=== PATIENT | male | born 1995 | race Caucasian/White ===

== ENCOUNTER 2021-06-01 13:16 | Emergency (ER) | payer OTHER, SELFPAY ==
[2021-06-01 13:31] VITALS: BP 135/92; PULSE 76; RESP 18; TEMP 36.4; O2SAT 100
--- NOTE | 2021-06-01 13:43 | ED.GENADULT ---
HPI - General Adult General Chief complaint: Unspecified Stated complaint: Depression Time Seen by Provider: 06/01/21 13:43 Source: patient and RN notes reviewed Mode of arrival: ambulatory Limitations: no limitations History of Present Illness HPI narrative: 25-year-old male presents to the [facility] with not feeling well and feeling he might be depressed. Patient states he broke up with a longtime girlfriend in the last 8 months, which he reports has reduced his stress. But he is concerned with decreased appetite, has not been able to sleep for the last week. Denies any thoughts of HI or SI. Patient did state he had an interview on Wednesday which he was eager to do. Patient states he is also concerned because he has lost almost 20 pounds in the last few months. Related Data Home Medications Medication Instructions Recorded Confirmed No Home Medications 06/01/21 06/01/21 Allergies Allergy/AdvReac Type Severity Reaction Status Date / Time ibuprofen Allergy Unknown Other Verified 06/01/21 13:27 Review of Systems Review of Systems: All systems reviewed & are unremarkable except as noted in HPI and below Constitutional: Constitutional: Reports no additional constitutional complaints, Denies chills and Denies fever(s) Eyes: Eyes: Reports no additional eye complaints ENT: Reports system reviewed and no additional complaints, except as documented Cardiovascular: Cardiovascular: Reports no additional cardiovascular complaints and Denies chest pain Respiratory: Respiratory: Reports no additional respiratory complaints and Denies cough Gastrointestinal: Gastrointestinal: Reports no additional gastrointestinal complaints, Denies abdominal pain, Denies nausea, Denies vomiting and Reports other (Decreased appetite) Musculoskeletal: Musculoskeletal: Reports no additional musculoskeletal complaints Integumentary/Breasts: Skin/Breast: Reports system reviewed and no additional complaints, except as docu Neurologic: Reports system reviewed and no additional complaints, except as documented Psychiatric: Psychiatric: Reports as per HPI, Reports depression, Denies homicidal ideation and Denies suicidal ideation Allergic/Immunologic: Allergic/Immunologic: Reports no additional allergic/immunologic complaints PMFSH Past Medical History Medical History (Updated 06/02/21 @ 16:14 by Teagan Brice APRN) Patient denies medical problems Surgical History Surgical History (Updated 06/02/21 @ 16:12 by Teagan Brice APRN) No pertinent past surgical history Social History Social History (System 01/31/19 @ 14:13 by Yris Colbert Smoking status: Smoker, status unknown Alcohol intake: current Comments At the time of my signature, I reviewed and agree with the nursing past medical, surgical, social, and family history. There is no relevant family history pertinent to the patient complaint. Exam Const: General: healthy appearing, no acute distress and alert Nutritional Appearance: well nourished Orientation/consciousness: patient oriented x3 Limitations: no limitations HENMT: Head: normal to inspection Ears: external ears normal Eyes: Pupils: Equal, round and reactive pupils present Neck: Neck: normal visual inspection, no lymphadenopathy and no meningeal signs Chest: Chest palpation & inspection: normal inspection of the chest Resp: Effort & Inspection: normal respiratory effort and no use of accessory muscles Auscultation: clear to auscultation bilaterally, no crackles, no rales, no rhonchi and no wheezes Cardio: Rate: regular rate Rhythm: regular rhythm GI: GI Palp: Yes Soft to palpation and No Tenderness to palpation present (GI) Back/Spine/Pelvis: Back: no CVA tenderness Skin: General skin exam: normal color Rashes: no rashes Wounds: no wounds Neuro: General: patient oriented x3, moves all extremities, no meningeal signs and no focal motor deficits Cranial nerves: Yes Equal, round and re
== END 2021-06-01 13:57 | disposition short-term general hospital (02) ==
PROVIDERS: Emergency Provider Nurse Practitioner
DX: F32.A Depression, unspecified (principal)
CPT/HCPCS: 99212; G0463

== ENCOUNTER 2022-03-18 14:28 | Emergency (ER) | payer BC, OTHER, SELFPAY ==
--- NOTE | 2022-03-18 14:31 | ED.URI ---
HPI - URI/Sore Throat General Chief Complaint: Upper Respiratory Infection Stated Complaint: cold sx Time Seen by Provider: 03/18/22 14:30 Source: patient Mode of arrival: ambulatory Limitations: no limitations History of Present Illness HPI Narrative: Mr. De La Fuente is a 26-year-old male patient presenting to clinic today with complaints of cold symptoms x2 days.. He reports He has had body aches, chills, sore throat, cough, and head congestion. No known exposure to anybody with COVID, flu, or strep. MD elicited complaint: sore throat and nasal congestion Related Data Home Medications Medication Instructions Recorded Confirmed No Home Medications 06/01/21 06/01/21 Allergies Allergy/AdvReac Type Severity Reaction Status Date / Time ibuprofen Allergy Unknown Other Verified 03/18/22 14:37 Review of Systems Review of Systems: Pertinent positives per HPI. Patient denies any fever, rash, visual changes, dizziness, shortness of breath, chest pain, palpitations, nausea, vomiting, diarrhea, constipation, abdominal pain, or any urinary issues. PMFSH Past Medical History Medical History Patient denies medical problems Surgical History Surgical History No pertinent past surgical history Social History Social History Smoking status: Smoker, status unknown Alcohol intake: current Comments At the time of my signature, I reviewed and agree with the nursing past medical, surgical, social, and family history. There is no relevant family history pertinent to the patient complaint. Exam Narrative: General: Well-developed, well nourished, in no apparent distress Head: Normocephalic, atraumatic Eyes: Pupils equally round and reactive to light bilaterally, EOM intact, sclera and conjunctive clear, no discharge, lids normal Ears: TMs intact and dull, ear canals clear, no drainage, grossly hearing normal. Nose: Nares patent, clear nasal discharge, no inflammation, no sinus tenderness. Mouth: Oral pharynx without lesions or masses, good dentition, MMM. oropharynx red Neck: Supple, trachea midline, no enlargement of anterior or posterior cervical nodes, no thyroid masses or goiter palpable. Cardio: Regular rate and rhythm, s1 and s2 normal, no murmur appreciated. Resp: Clear to auscultation bilaterally, no rhonchi, rales, wheezing or rubs Course Course Emergency Course: Portions of this record may have been created with voice recognition software. Level of Care: Express Care Visit Vital Signs Vital signs: Vital Signs Temperature 37.3 C 03/18/22 14:38 Pulse Rate 92 03/18/22 14:38 Respiratory Rate 18 03/18/22 14:38 Blood Pressure 134/88 03/18/22 14:38 Pulse Oximetry 100 03/18/22 14:38 Oxygen Delivery Room Air 03/18/22 14:38 Temperature 37.3 C 03/18/22 14:38 Pulse Rate 92 03/18/22 14:38 Respiratory Rate 18 03/18/22 14:38 Blood Pressure 134/88 03/18/22 14:38 Pulse Oximetry 100 03/18/22 14:38 Oxygen Delivery Room Air 03/18/22 14:38 Vital signs reviewed MDM - URI/Sore Throat MDM Narrative Medical decision making narrative: At the time of visit patient is resting comfortably on the exam table. COVID testing and influenza testing was completed. COVID test was negative influenza was positive for influenza A. Supportive measures were discussed with the patient he voiced understanding of discharge instructions and agrees to treatment plan. Strep culture was sent to the lab. Differential Diagnosis Differential diagnosis: Likely upper respiratory infection, otitis media, sinusitis, viral infection, bronchitis, influenza, pharyngitis and other ( COVID) Lab Data Labs: Influenza A Screen Positive Reference Range: Negative Inf
[2022-03-18 14:38] VITALS: BP 134/88; PULSE 92; RESP 18; TEMP 37.3; O2SAT 100
== END 2022-03-18 15:28 | disposition home or self-care (01) ==
PROVIDERS: Emergency Provider Nurse Practitioner Family
DX: J10.1 Influenza due to other identified influenza virus with other respiratory manifestations (principal); Z20.822 Contact with and (suspected) exposure to COVID-19
CPT/HCPCS: 87070; 87426; 87804; 99213; C9803; G0463

== ENCOUNTER 2023-05-26 10:11 | Emergency (ER) | payer SELFPAY ==
--- NOTE | ~2023-05-26 | CT_ITS ---
EXAMINATION: CT abdomen pelvis w con DATE: 05/26/2023 11:34 INDICATION: Generalized abdominal pain, worst in the right lower quadrant. TECHNIQUE: Computed tomography (CT) of the abdomen and pelvis was performed with 100 mL Omnipaque 350 intravenous contrast. Automated exposure control and iterative reconstruction technique were employe d. The dose-length product was 226.81 mGy-cm. COMPARISON: None. FINDINGS: The visualized portions of the lung bases are clear without pneumonia or pleural effusion. The heart size is normal. No pericardial effusion. The liver, gallbladder, spleen, pancreas, adrenal glands, and kidneys are normal. There are no dilated loops of bowel. The appendix is normal. There ar e no pathologically enlarged lymph nodes. There is no free intraperitoneal fluid. The bones are unrem arkable. IMPRESSION: 1. No etiology for the patient's symptoms. Reviewed, dictated and finalized at location A. [facility]
[2023-05-26 10:15] VITALS: BP 136/92; PULSE 84; RESP 18; TEMP 36.3; O2SAT 100
--- NOTE | 2023-05-26 10:25 | ED.ABDPAIN ---
HPI - Abdominal Pain General Chief Complaint: Abdominal Pain Stated Complaint: rlq pain Time Seen by Provider: 05/26/23 10:13 History of Present Illness HPI narrative: 27-year-old male with reported history of diverticulitis reports for evaluation for abdominal pain x1 week. Patient states his pain is in his right lower quadrant, right upper quadrant, and left flank. When asked where the worst pain is, he points to his right lower quadrant. He reports mild constipation. His last bowel movement was today but small in caliber. Reports nausea, denies vomiting or diarrhea. Denies dysuria, hematuria, fever, prior abdominal surgeries. States abdominal pain gets worse with movement, denies other aggravating or alleviating factors. Related Data Allergies Allergy/AdvReac Type Severity Reaction Status Date / Time ibuprofen Allergy Unknown Other Verified 05/26/23 10:23 Review of Systems Review of Systems: CONSTITUTIONAL: Denies fever, chills, or sweats. EYES: Denies visual changes, redness, or discharge. ENT: Denies rhinorrhea, congestion, sore throat, or otalgia. CARDIOVASCULAR: Denies chest pain, palpitations, or edema. RESPIRATORY: Denies cough or dyspnea. GASTROINTESTINAL: See HPI GENITOURINARY: Denies dysuria or hematuria. SKIN: Denies rash or itching. MUSCULOSKELETAL: Denies back pain, joint pain, or myalgia. NEUROLOGIC: Denies headache, numbness, or weakness. PSYCHIATRIC: Denies anxiety or depression. PMFSH Past Medical History Medical History Patient denies medical problems Surgical History Surgical History No pertinent past surgical history Social History Social History Smoking status: Smoker, status unknown Alcohol intake: current Exam Narrative: GENERAL: Well-appearing, well-nourished, and in no acute distress. HEAD: Normocephalic, atraumatic. EYES: PERRLA and EOMI. ENT: Nares clear, no rhinorrhea or epistaxis. Mucous membranes moist. NECK: Supple. CHEST: Clear to auscultation. No respiratory distress. HEART: Regular rate and rhythm. No murmur heard. Normal peripheral pulses. ABDOMEN: Quiet bowel sounds. Abdomen soft with tenderness in the right lower quadrant, right upper quadrant. No CVA tenderness. No guarding, rebound or rigidity. EXTREMITIES: Normal range of motion. No edema. SKIN: Warm, dry, no rash. NEURO: No focal deficits. Alert and oriented x3 Course Vital Signs Vital signs: Vital Signs Temperature 97.4 F L 05/26/23 10:15 Pulse Rate 84 05/26/23 10:15 Respiratory Rate 18 05/26/23 10:15 Blood Pressure 136/92 H 05/26/23 10:15 Pulse Oximetry 100 05/26/23 10:15 Oxygen Delivery Room Air 05/26/23 10:15 Temperature 97.4 F L 05/26/23 10:15 Pulse Rate 84 05/26/23 10:15 Respiratory Rate 18 05/26/23 10:15 Blood Pressure 136/92 H 05/26/23 10:15 Pulse Oximetry 100 05/26/23 10:15 Oxygen Delivery Room Air 05/26/23 10:15 MDM - Abdominal Pain MDM Narrative Medical decision making narrative: 27-year-old male with a reported history of diverticulitis reports for evaluation for abdominal pain x1 week. See HPI for further history. Vitals stable. He is afebrile. Exam significant for the above. CBC without leukocytosis. Chemistries are largely unremarkable, LFTs are normal. UA without infection. Lactic acid normal. Lipase normal. CT abdomen pelvis shows no acute abnormality. Labs and imaging discussed with the patient. He is concerned he is constipated, will prescribe docusate have a follow-up with PCP. Referral provided. Strict ED return precautions discussed. He is agreeable to plan verbalized understanding. Discharged in stable condition. Lab Data 05/26/23 10:24 05/26/23 10:24 Labs: Lab Results 05/26/23 05/26/23 Range/Units 10:2
[2023-05-26] MEDS: SODIUM CHLORIDE 0.9% IV 1,000 ML 999 ML IV CONT (10:31)
[2023-05-26] MEDS: ONDANSETRON INJ 4 MG/2 ML VIAL IV PUSH (10:31)
[2023-05-26 10:44] LABS: Appearance Urine Clear (Clear); Basophils Absolute Auto 0.1 K/mm3 (0.0-0.1); Basophils Percent Auto 0.8 % (0.2-1.2); Bilirubin Urine Negative (Negative); Blood Urine Negative (Negative); Color Urine Yellow (Yellow); Eosinophils Absolute Auto 0.1 K/mm3 (0-0.3); Glucose Urine UA Negative (Negative); Hematocrit 43.3 % (42.0-52.0); Hemoglobin 14.3 g/dL (14.0-18.0); Immature Granulocyte Absolute 0.01 K/mm3 (0.00-0.031); Immature Granulocyte Percent A 0.2 % (0-0.5); Ketones Urine Trace mg/dL (Negative); Leukocyte Esterase Ur Negative LEU/UL (Negative); Lymphocytes Absolute Auto 1.68 K/mm3 (0.9-3.2); Lymphocytes Percent Auto 27.5 % (18.3-44.2); Mean Corpuscular Hemoglobin 28.8 pg (26-34); Mean Corpuscular Volume 87.1 fl (80-100); Mean Platelet Volume 9.2 fl (7.4-10.4); Monocytes Absolute Auto 0.5 K/mm3 (0.1-0.6); Neutrophils Absolute Auto 3.8 K/mm3 (1.3-6.7); Neutrophils Percent Auto 62.5 % (45.5-73.1); Nitrate Urine Negative (Negative); Platelet Count Result 302 k/mm3 (150-375); Protein Urine Negative (Negative); Red Blood Count 4.97 M/mm3 (4.6-6.20); Red Cell Distribution Width 12.8 % (11.5-14.5); Specific Grav Ur 1.015 (1.001-1.035); Urobilinogen Urine 0.2 mg/dL (<2.0); White Blood Count 6.1 K/mm3 (4.5-10.0)
[2023-05-26 10:55] LABS: Add Urine Microscopic? NO
[2023-05-26 10:56] LABS: Alanine Aminotransferase 21 U/L (6-50); Albumin Level 5.1 g/dL (3.5-5.1); Alkaline Phosphatase 49 U/L (38-126); Anion Gap 4 mmol/L (8-16); Aspartate Amino Transferase 32 U/L (17-59); Bilirubin,Total 0.9 mg/dL (0.2-1.3); Blood Urea Nitrogen 15 mg/dL (9-20); Carbon Dioxide 34 mmol/L (22-30); Chloride 102 mmol/L (98-107); Estimated CRCL calculation 107 ml/min; Estimated Glomerular Filt Rate > 60; Glucose 94 mg/dL (65-110); Lipase 36 U/L (23-300); Potassium 3.4 mmol/L (3.4-5.0); Sodium 140 mmol/L (137-145)
[2023-05-26 10:57] LABS: Lactic Acid Reflex 0.6 mmol/L (0.7-2.0)
[2023-05-26 12:20] VITALS: BP 123/87; PULSE 64; RESP 18; O2SAT 99
== END 2023-05-26 12:22 | disposition home or self-care (01) ==
PROVIDERS: Emergency Provider Physician Assistant
DX: R10.84 Generalized abdominal pain (principal)
CPT/HCPCS: 36415; 74177; 80053; 81003; 83605; 83690; 85025; 96361; 96374; 99284; J2405; J7030; Q9967

== ENCOUNTER 2024-01-31 13:56 | Outpatient (CLI) | payer BC, SELFPAY ==
[2024-01-31 14:32] LABS: CRP < 0.5 mg/dL (<1.0)
[2024-02-03 15:52] LABS: Immunoglobulin A 129 mg/dL (47-310); TTG IGA AB <1.0 U/mL
[2024-02-03 21:28] LABS: Beef IgE (F27) <0.10 kU/L; Lamb (F88) IgE <0.10 kU/L; Lamb Class 0; Pork (F26) IgE <0.10 kU/L; Pork Class 0
== END 2024-01-31 13:57 | disposition home or self-care (01) ==
LOC: ANHLAB 13:58
PROVIDERS: Visit Provider Nurse Practitioner Family
DX: R11.0 Nausea (principal); R10.9 Unspecified abdominal pain; R19.4 Change in bowel habit; R63.4 Abnormal weight loss
CPT/HCPCS: 36415; 82784; 86008; 86140; 86364

== ENCOUNTER 2024-03-14 00:13 | Day surgery (SDC) | payer BC, SELFPAY ==
[2024-03-02 13:25] VITALS: BMI 20.3
[2024-03-14 06:22] VITALS: BP 120/75; PULSE 50; RESP 19; TEMP 36.1; O2SAT 100
[2024-03-14] MEDS: LACTATED RINGERS 1,000 ML 150 ML IV CONT (06:33)
--- NOTE | 2024-03-14 07:04 | WPDANESEPPF ---
Anes - Initial Pre Proc Eval Procedure: Operation Date: 03/14/24 07:30 Proposed Procedures p Esophagogastroduodenoscopy & Colonoscopy - Rodger Parikh MD Date/Time: 03/14/24 07:04 Surgeon: Rodger Parikh MD Pre Op Diagnosis: Nausea/abnormal wt loss Patient Data Age: 28 Gender: M Height: 1.83 m Weight: 66 kg Last Vital Signs Temp 36.1 C L 03/14/24 06:22 Pulse 50 L 03/14/24 06:22 Resp 19 03/14/24 06:22 BP 120/75 03/14/24 06:22 Pulse Ox 100 03/14/24 06:22 O2 Del Method Room Air 03/14/24 06:22 Allergies Allergy/AdvReac Type Severity Reaction Status Date / Time ibuprofen Allergy Unknown Other Verified 03/14/24 06:20 Home Medications ?Medication ?Instructions ?Recorded ?Confirmed ?Type omeprazole 40 mg capsule,delayed 40 mg PO DAILY 01/27/24 03/14/24 History release dicyclomine 10 mg capsule 10 mg PO TID PRN Diarrhea 03/02/24 03/02/24 History Patient hx anesthesia problems: none Family hx anesthesia problems: none Results Review: All pre-operative results and documents have been reviewed as part of the pre-operative evaluation. [facility] Past Medical History Medical History (Updated 03/14/24 @ 07:04 by Yunier Briceño MD) Depression Surgical History Surgical History No pertinent past surgical history Social History Social History Smoking status: Current every day smoker Tobacco type: e-cigarettes/vaping Alcohol intake: current Substance use: current Substance use type: marijuana Other substance usage details: daily Living arrangements: with family Spiritual care concerns: No Anes - Eval Final PreProcedure Day of Procedure 03/14/24 07:04 Patient weight: normal Heart: regular rate and rhythm Lungs: clear to auscultation Airway: Mallampati scale class II Neurological: alert and oriented Last oral intake: >/= 8 hours ASA classification: II Emergent: no Anesthetic plan: proceed Anesthesia type and monitoring: general GIVS and standard monitoring Results Review: All pre-operative results and documents have been reviewed as part of the pre-operative evaluation. Informed Consent: The patient's anesthetic plan and its attendant risks and benefits were discussed with the patient/family/POA. Questions were solicited and answers provided to the satisfaction of the patient/family/POA.
[2024-03-14] MEDS: BENZOCAINE (*SP) 60 ML SPRAY CAN (HURRICAINE) 1 SPRAY MUCOUS MEM (07:39)
--- NOTE | 2024-03-14 07:41 | P.HP_ITS ---
H&P: HPI History of Present Illness Date/Time: 03/14/24 07:41 Chief Complaint: Generalized abdominal pain -weight loss. Narrative: The patient has a complex history of left upper quadrant pain, unintentional w eight loss and a recent past history of alcohol drinking. He has lost over 50 lb. He has been seen in our office and is referred now for EGD and colonoscopy. Review of Systems Review of Systems: All systems reviewed & are unremarkable except as noted in HPI and below PMFSH Past Medical History Medical History (Updated 03/14/24 @ 07:04 by Yunier Briceño MD) Depression Surgical History Surgical History No pertinent past surgical history Social History Social History Smoking status: Current every day smoker Tobacco type: e-cigarettes/vaping Alcohol intake: current Substance use: current Substance use type: marijuana Other substance usage details: daily Living arrangements: with family Spiritual care concerns: No Meds Home Medications and Allergies Home Medications ?Medication ?Instructions ?Recorded ?Confirmed ?Type omeprazole 40 mg capsule,delayed 40 mg PO DAILY 01/27/24 03/14/24 History release dicyclomine 10 mg capsule 10 mg PO TID PRN Diarrhea 03/02/24 03/02/24 History Allergies Allergy/AdvReac Type Severity Reaction Status Date / Time ibuprofen Allergy Unknown Other Verified 03/14/24 06:20 Vital Signs Vital Signs - 24 hr 03/14/24 06:22 Temperature 97 F L Pulse Rate 50 L Respiratory Rate 19 Blood Pressure 120/75 Pulse Oximetry 100 Oxygen Delivery Room Air Exam Const: General: cooperative and healthy appearing Resp: Effort & Inspection: normal respiratory effort and able to speak in complete sentences Auscultation: clear to auscultation bilaterally Cardio: Rate: regular rate Rhythm: regular rhythm GI: Inspection: normal to inspection GI Palp: No No hepatosplenomegaly present Auscultation: normal bowel sounds Rectal Exam: deferred Skin: General skin exam: normal color Psych: Appearance: grossly normal Mental Status: mental status grossly normal Assessment and Plan Assessment and plan (1) Right sided abdominal pain: Code(s): R10.9 - Unspecified abdominal pain Status: Acute Assessment and Plan: The patient is deemed a good candidate for the procedures. Consent signed. Will proceed. (2) Weight loss: Code(s): R63.4 - Abnormal weight loss Status: Acute (3) RUQ abdominal pain: Code(s): R10.11 - Right upper quadrant pain Status: Acute
--- NOTE | 2024-03-14 07:59 | SUR.OPER ---
egd ended at 0752 and colonoscopy begun at 0759
[2024-03-14] MEDS: SIMETHICONE ORAL SUSPENSION 20 MG/0.3 ML 30 ML BOTTLE 0.6 ML IRRIGATION (08:04)
[2024-03-14 08:23] VITALS: BP 128/83; PULSE 38; RESP 20; O2SAT 100
[2024-03-14 08:33] VITALS: BP 129/90; PULSE 44; RESP 12; O2SAT 100
[2024-03-14 08:43] VITALS: BP 110/65; PULSE 46; RESP 12; O2SAT 100
== END 2024-03-14 09:00 | disposition home or self-care (01) ==
PROVIDERS: Referring Provider Nurse Practitioner Family; Visit Provider Internal Medicine Gastroenterology
PROC: 0DJ08ZZ Inspection of Upper Intestinal Tract, Via Natural or Artificial Opening Endoscopic (ICD-10-PCS; CPT 43235; principal; 2024-03-14 07:30)
DX: K57.30 Diverticulosis of large intestine without perforation or abscess without bleeding (principal); K44.9 Diaphragmatic hernia without obstruction or gangrene; F32.A Depression, unspecified; F17.290 Nicotine dependence, other tobacco product, uncomplicated; F12.90 Cannabis use, unspecified, uncomplicated
CPT/HCPCS: 43239; 45380; 88305; J2003; J2704; J7120

== ENCOUNTER 2024-05-15 10:29 | Outpatient (CLI) | payer OTHER, SELFPAY ==
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
--- OUTSIDE RECORDS SUMMARY | 2024-05-15 13:36 | XMS_ITS | Patient Health Summary ---
Author Organization [facility] Address [address] [place] [address] Care Team Providers Care Hydrogen Braze Furnace Operator Name Role Phone Unavailable Primary Care Provider Unavailabl e Note from [facility],non-owned Affiliates and Associated Physician Practices is amultiple site organization consisting of ambulatory clinics and hospital sitesin [place], [place], [place] and [place]. This disclosure is being madepursuant to the Care Everywhere program and may not contain all information available regarding this patient. Last updated 17.[facility] Social History Tobacco Use Types Packs/Day Years Used Date Smoking Tobacco: Never Assessed Sex and Gender Information Value Date Recorded Sex Assigned at Not on file Gender Identity Not on file Sexual Orientation Not on file Procedures * GROSS + MICRO EXAM(Performed 11/28/1997) Results * GROSS + MICRO EXAM (11/28/1997 9:00 AM CDT) Result CASE NUMBER [id number] [facility] PATH REPORT Comment: ORDERING PHYSICIAN DAVID ESPINOZA SPECIMEN TYPE Mass-R. Lower Leg CLINICAL HISTORY The patient is a 2-year-old boy with a mass of the right lower leg who underwent excision of the same. GROSS DESCRIPTION The specimen labeled with the patient's name and mass, right lower leg is received fresh for gross and microscopic examination and consists of a 2.5 x 1 x 1.4 cm ellipse of hair bearing, pink-mancilla skin and subcutaneous tissue. The skin surface has a rugated appearance. The subcutaneous tissue has a fibrous texture. The surgical resection margins are painted with Soo ink. Cut surface reveals glistening, wheat-white fibrous tissue within the subcutaneous tissue. A portion of the specimen is saved for electron microscopy. The remainder of the specimen is submitted in cassettes A1 and A2 . Also submitted in the same container are two irregular shaped fragments of shaggy, pink-mancilla soft tissue with an aggregate measurement of 1.5 x 0.6 x 0.6 cm. These specimens are submitted in a cassette labeled A3 . (CT/hm) MICROSCOPIC DESCRIPTION 1 H/E The right lower leg mass has an unremarkable epidermis and upper dermis. In the deeper dermis foci of fibrinoid necrosis are identified. They are surrounded by a palisade of histiocytes and lymphocytes. Also an increased number of collagen producing fibroblasts are present. The surgical margin is involved by these lesions. (CG/lw) DIAGNOSIS DIAGNOSIS MASS, RIGHT LOWER LEG, EXCISION - PALISADING GRANULOMA (SEE COMMENT). COMMENT THE DIFFERENTIAL DIAGNOSIS OF THIS GRANULOMATOUS PROCESS INCLUDES GRANULOMA ANNULARE, RHEUMATOID NODULE, NECROBIOSIS LIPOIDICA DIABETICORUM AND HEAVY METAL EXPOSURE. CLINICAL CORRELATION IS RECOMMENDED. Senior Software Test Engineer PRAFUL LOZANO RESIDENT IN PATHOLOG Alyson Cannon M.D. PATHOLOGIST hSai Singh M.D. ELECTRONICALLY SHAI STERN MISCELLANEOUS SAMPLES / Unknown 11/28/1997 9:00 AM CDT 11/28/1997 12:30 PM CDT Historical Provider LAB - PATHOLOGY/C YTOLOGY ORDERABLES [facility] PATH REPORT
--- OUTSIDE RECORDS SUMMARY | 2024-05-15 13:36 | XMS_ITS | Clinical Summary ---
Author Organization [facility] Address [address] [place] [address] Care Team Providers Care Distribution Center Supervisor Name Role Phone Unavailable Primary Care Provider Unavailabl e Source Comments [facility],non-owned Affiliates and Associated Physician Practices is amultiple site organization consisting of ambulatory clinics and hospital sitesin [place], [place], [place] and [place]. This disclosure is being madepursuant to the Care Everywhere program and may not contain all information available regarding this patient. Last updated 17.[facility] Social History Tobacco Use Types Packs/Day Years Used Date Smoking Tobacco: Never Assessed Sex and Gender Information Value Date Recorded Sex Assigned at Not on file Gender Identity Not on file Sexual Orientation Not on file Plan of Treatment Health Maintenance Due Date Last Done Comments HIV SCREENING 2009 HEPATITIS C SCREENING 07/17/2012 DTAP/TDAP/TD VACCINES (1 - Tdap) 2013 HEPATITIS B VACCINE (1 of 3 - 19+ 3-dose series) 2013 COVID-19 VACCINE (1 - 2023-2 5 season) 2023 INFLUENZA VACCINE (#1) 2023 DEPRESSION SCREENING 03/29/2024 ZOSTER VACCINE (1 of 2) 2044 HIB VACCINE Aged Out No longer eligi ble based on patient's age to complete this topic HPV VACCINE Aged Out No longer eligi ble based on patient's age to complete this topic MENINGOCOCCAL (Group B) VACCINE Aged Out No longer eligible based on patient's age to complete this topic MENINGOCOCCAL VACCINE Aged Out No nuris chuy eligible based on patient's age to complete this topic PNEUMOCOCCAL VACCINE Aged Out No long er eligible based on patient's age to complete this topic Davis De La Fuente Jr. Personal/Family Self 1995
--- OUTSIDE RECORDS SUMMARY | 2024-05-15 13:36 | XMS_ITS | Encounter Summary ---
Author Organization [facility] Address [address] [place] [address] Care Team Providers Care Wind Commissioning Technician Name Role Phone Enio Infante Primary Care Provider [phone] Encounter Details Date Type Department Care Team (Late st Contact Info) Description 03/20/2024 REPUBLIC RESOURCESt Message Enc [facility] Family & Internal Medicine [facility] [address] [place] [phone] Enio Infante PA [address] [place] [address] Letter for light duty at work Social History Tobacco Use Types Packs/Day Years Used Date Smoking Tobacco: Never Passive Smoke Exposure: Past Smokeless Tobacco: Never Alcohol Use Standard Drinks/Week Comments Not Currently 0 (1 standard drink = 0.6 oz pure alcohol) has not had alcohol since 2020 PHQ-2 Answer Date Recorded Patient Health Questionnaire-2 Score 6 07/05/2023 Sex and Gender Information Value Date Recorded Sex Assigned at Male 05/01/2024 7:26 PM DEVELOPMENTAL MATHEMATICS PROFESSOR Legal Sex Male 10:22 PM DEVELOPMENTAL MATHEMATICS PROFESSOR Gender Identity Not on file Sexual Orientation Not on file documented as of this encounter Progress Notes * Nayely Eaton MA - 03/20/2024 8:52 AM CST Please advise. Patient is seeing you 03/27/24 for FMLA LOPMENTAL MATHEMATICS PROFESSOR documented in this encounter Plan of Treatment Not on file documented as of this encounter Visit Diagnoses Not on filedocumented in this encounter Additional Health Concerns Assessment Noted Time PHQ-9 Depression Total Score: 22 07/04/ 024 3:45 PM CDT documented as of this encounter Care Teams Wind Commissioning Technician Relationship Specialty [place] [address] [place] [address] PCP - General Physician Financial Reporting Accountant Medical 07/02/23 documented as of this encounter
--- OUTSIDE RECORDS SUMMARY | 2024-05-15 13:36 | XMS_ITS | Referral Summary ---
Author Organization [facility] Address [address] [place] [address] Care Team Providers Care Hot Stone Setter Name Role Phone Unavailable Primary Care Provider Unavailabl e Source Comments [facility],non-owned Affiliates and Associated Physician Practices is amultiple site organization consisting of ambulatory clinics and hospital sitesin [place], [place], [place] and [place]. This disclosure is being madepursuant to the Care Everywhere program and may not contain all information available regarding this patient. Last updated 17.[facility] Social History Tobacco Use Types Packs/Day Years Used Date Smoking Tobacco: Never Assessed Sex and Gender Information Value Date Recorded Sex Assigned at Not on file Gender Identity Not on file Sexual Orientation Not on file Plan of Treatment Not on file Davis De La Fuente Jr. Personal/Family Self 1995
--- OUTSIDE RECORDS SUMMARY | 2024-05-15 13:36 | XMS_ITS | Encounter Summary ---
Author Organization [facility] Address [address] [place] [address] Care Team Providers Care City Marshal Name Role Phone Enio Infante Primary Care Provider [phone] Encounter Details Date Type Department Care Team (Late st Contact Info) Description 01/04/2024 Sonarworks Message Enc [facility] Family & Internal Medicine [facility] [id number] [place] [phone] Enio Infante PA [address] [place] [phone] Update on referall? Social History Tobacco Use Types Packs/Day Years Used Date Smoking Tobacco: Never Smokeless Tobacco: Never Alcohol Use Standard Drinks/Week Comments Not Currently 0 (1 standard drink = 0.6 oz pure alcohol) has not had alcohol since 2020 PHQ-2 Answer Date Recorded Patient Health Questionnaire-2 Score 6 07/05/2023 Sex and Gender Information Value Date Recorded Sex Assigned at Male 05/01/2024 7:26 PM COAT AGENT Legal Sex Male 10:22 PM COAT AGENT Gender Identity Not on file Sexual Orientation Not on file documented as of this encounter Plan of Treatment Not on file documented as of this encounter Visit Diagnoses Not on filedocumented in this encounter Additional Health Concerns Infection Onset Date Last Indicated Resolved Time COVID-19 Rule Out 03/09/2024 03/09/2024 03/09/2024 11:06 AM COAT AGENT Assessment Noted Time PHQ-9 Depression Total Score: 22 024 3:45 PM CDT documented as of this encounter Care Teams City Marshal Relationship Specialty [place] [address] [place] [address] PCP - General Physician Sheet Metal Helper Medical 07/02/23 documented as of this encounter
--- OUTSIDE RECORDS SUMMARY | 2024-05-15 13:36 | XMS_ITS | Referral Summary ---
Author Organization [facility] Address [address] [place] [address] Care Team Providers Care Academic Success Coordinator Name Role Phone Enio Infante Primary Care Provider [phone] Allergies Active Allergy Reactions Criticality Noted Date Comments Ibuprofen Anaphylaxis High 05/05/2022 Medications butalbital-acetami nophen-caffeine (ESGIC) 50-325-40 mg per tablet Take 1 tablet by mouth every 4 (four) hours as needed for headaches 12 tablet 3 Active methocarbamoL (ROBAXIN) 500 mg tablet Take 1 tablet (500 mg total) by mouth 2 (two) times a day as needed for muscle spasms 12 tablet 3 Active traMADoL (ULTRAM) 50 mg tablet Take 1 tablet (50 mg total) by mouth every 6 (six) hours 10 tablet 4 Active ondansetron ODT (ZOFRAN-ODT) 4 mg disintegrating tablet Take 1 tablet (4 mg total) by mouth every 8 (eight) hours as needed for nausea or vomiting 20 tablet 4 Active Active Problems Problem Noted Date Diagnosed Date Fracture of foot 10/11/2016 Social History Tobacco Use Types Packs/Day Years Used Date Smoking Tobacco: Never Smokeless Tobacco: Current Tobacco Cessation:Ready to Q uit: Not Asked; Counseling Given: Not Answered Personal Safety Answer Date Recorded Have you ever been in or are you currently in a harmful physical or emotional relationship or is someone making you feel afraid or unsafe? Denies 12/15/2023 Sex and Gender Information Value Date Recorded Sex Assigned at Not on file Legal Sex Male 2:52 AM TIMING ADJUSTER Gender Identity Not on file Sexual Orientation Not on file Last Filed Vital Signs Vital Sign Reading Time Taken Comments Blood Pressure 125/85 12/15/2023 6:35 PM CDT Pulse 66 12/15/2023 6:35 PM CDT Temperature 36.6 C (97.8 F) 12/15/2023 2:06 PM CDT Respiratory Rate 18 12/15/2023 2:06 PM CDT Oxygen Saturation 96% 12/15/2023 6:35 PM CDT Inhaled Oxygen Concentration - - Weight 70.3 kg (155 lb) 12/15/2023 2:04 PM CDT Height 182.9 cm (6') 12/15/2023 2:04 PM CDT Body Mass Index 21.02 12/15/2023 2:04 PM CDT Plan of Treatment Not on file Procedures Procedure Name Priority Date/Time Associated Diagnosis Comments HEPATITIS C ANTIBODY STAT 06/01/2023 1:04 AM TIMING ADJUSTER from Last 3 Months or Most Recently Relevant to Health Maintenance Results * Hepatitis C antibody Blood (06/01/2023 1:04 AM TIMING ADJUSTER) Hep C Ab Nonreactive Nonreactive [facility] Comment:Antibodies to HCV no t detected. Does NOT exclude the possibility of recent exposure to HCV. Current interpretive data was last revised on 21 Blood 06/01/2023 1:04 AM TIMING ADJUSTER 06/01/2023 1:20 AM TIMING ADJUSTER us Maria Eugenia Montemayor MD LAB MICROBIOLOGY - GENERAL O RDERABLES Final Result [facility] Department [place] [address] from Last 3 Months or Most Recently Relevant to Health Maintenance Insurance [employer] OOS Member Subscriber Plan / Payer (Ef fective 2023-Present) Name:Davis De La Fuente Member ID:[id number] Relation to Subscriber:Self Name:Davis De La Fuente Subscriber ID:[id number] Payer ID:[id number] (NAIC) Type:[employer] Address: [address] [place] [address] [place] ACCESS OOS Member Subscriber Plan / Payer ( fective 2023-Present) Name:Davis De La Fuente Member ID:[id number] Relation to Subscriber:Self Name:Davis De La Fuente Subscriber ID:[id number] Payer ID:[id number] (NAIC) Type:[employer] Address: [address] [place] [address] Care Teams Academic Success Coordinator Relationship Specialty Start Date End Date Enio Infante PA [address] [place], [place] [address] PCP - General Negative Cutter 12/15/23
--- OUTSIDE RECORDS SUMMARY | 2024-05-15 13:36 | XMS_ITS | Continuity of Care Document ---
Author Organization [facility] Address [address] [place] [address] Phone Care Team Providers Care Drupal Web Developer Name Role Phone Bhanu Rodriguez MD Unavailable Unavailable Allergies, Adverse Reactions, Alerts Substance Reaction Status Criticality ibuprofen Active No Information Medications Medication Instructions Dosage Effective Dates (start - stop) Status Comments cyclobenzaprine 10 mg tablet take 1 tablet by oral route 2 times every day as needed 10 MG - Active PRn for pain , avoid driving or operate machines Procedures Procedure Date OFFICE/OUTPATIENT VISIT, EST PREV VISIT, NEW, AGE 18-39 Advance Directives Directive Yes / No Effective Date File Name No Information Encounters Encounter Description Practice Location Reason(s) For Visit Diagnoses Date Provider Providers Copied on Encounter OFFICE/OUTPAT IENT VISIT, EST [facility], [address] [employer] [place] [id number], [place] tel:[phone] [facility] back pain1 (chief complaint) globulin1 (chief complaint) weight loss1 (chief complaint) Abnormality of globulinAbnormal weight lossMuscle spasm of back [address]. [address], [facility] [place], [id number] , [place]. tel:[phone] Referring Provider: Bhanu Rodriguez, [address] [place], [place], [id number]. tel:[phone] PREV VISIT, NEW, AGE 18-39 [facility], [address] [employer] [place], [id number], [place] tel:[phone] [facility] pHysical (chief complaint) Encntr for general adult medical exam w/o abnormal findings [address]. Renny Lafleur, [facility] [address], [place], [place], [id number] , [place]. tel:[phone] Referring Provider: Bhanu Rodriguez [address], [place], [place], [id number]. tel:[phone] Family History Family Member Type Diagnosis Age At Onset Mother Problem (finding) Alive and well Father Problem (finding) back pain Brother Problem (finding) Alive and well Maternal aunt Problem (finding) RA Payers Payer name Insurance type Covered constitution party ID Authoriza tion(s) No Information Social History Type Description Quantity Date Captured Comments Alcohol Use Details No Caffeine Use Details Unknown Tobacco Use Status Current non-smoker Smoking Status Never smoker Non-Smoking Tobacco Use Details : No Details Available : No Details Available Sex Male Vital Signs Date / Time: Height Weight BMI Pulse Rate Blood Pressure Temperature Respiratory Rate Body Surface Area Head Circumference BMI percentile Pulse Ox Inhaled Ox 4:55 PM 73.00 in 150.80 lbs 19.9 0 kg/m eter (2) 89 /min 132/69 mm[Hg] 97.5 F 16 /min Chief Complaint And Reason For Visit From encounter dated '08/10/2018 15:30'. back pain1 (chief complaint). Description: Pt has been having intermittent low back pain with mild right sciatica Pt has occasional tingling right leg but not all the time. His back x ray is benign Pt did not do PT. Pt tried flexeril which helps Pt states that codeine made him nauseated. pt states that his back pain is improving. pt denies any injury globulin1 (chief complaint). Description: Pt has mildly low globulin. Pt denies any recurrent infection. weight loss1 (chief complaint). Description: Pt has not been losing weight during last two months. Pt lost 30 pounds during previous last 4-5 months. Pt states that he did have a lot of stress and hecould not eat well. Pt denies any Gi issue now . Pt denies any appetite loss or early satiety or any nausea, vomiting, diarrhea, blood in stool. Pt has not lost any weight since last month. Plan Of Treatment Date Type Action Status Referral Ordered: Physical Therapy (related to Encntr for general adult medical exam w/o abnormal findings) ordered Referral Referred To: Physical Therapy Ordered: Referrals: Physical Therapy. Evaluate and treat ordered Referral Ordered: LUMBAR XRAY AP AND LAT ONLY ordered History Of Present Illness Encounter Date Complaint History Of Prese nt Illness back pain1 Pt has been havi ng intermittent low back pain with mild right sciatica Pt has occasional tingling right leg but not all the time. His back x ray is benign Pt did not do PT. Pt tried flexeril which helps Pt states that codeine made him nauseated. pt states that his back pain is improving. pt denies any injury weight loss1 Pt has not been losing weight during last two months. Pt lost 30 pounds during previous last 4-5 months. Pt states that he did have a lot of stress and he could not eat well. Pt denies any Gi issue now . Pt denies any appetite loss or early satiety or any nausea, vomiting, diarrhea, blood in stool. Pt has not lost any weight since last month. globulin1 Pt has mildly lo w globulin. Pt denies any recurrent infection. pHysical Pt needs annual physical. Pt lost 30 pounds during last 3 months. Pt states that he has been under a lot of stress. Pt denies any appetite loss or eating less Pt denies any early satiety. Pt denies any nausea, vomiting, abdominal pain. Pt denies any rectal bleeding or diarrhea or constipation. Pt denies any food related issue. Pt has chronic low back pain for at least 5 years. Pt denies any injury. Pt c/o occasional right sciatica with mild right leg tingling at times. Pt denies any loss of bladder control. Pt has not seen any physician for above. Pt has frequent pain worse towards the end of the day. Pt denies any fever, chill. Pt has sharp pain around 6/10. Pt states that it is 8/10 when flare up. Pt has tried OTC meds without improvement. Pt also has vague shoulder and knee pain Instructions Date Instruction Additional Infor mation Increase physical activity Relat ed to Abnormality of globulin Increase activity. Related to En cntr for general adult medical exam w/o abnormal findings Assessments Type Assessment Date assessment Abnormality of globulin 019 assessment Abnormal weight loss assessment Muscle spasm of back Mental Status Date Cognitive Assessment Orientation - [place] ed to time, place, person, situation.
--- OUTSIDE RECORDS SUMMARY | 2024-05-15 13:37 | XMS_ITS | Clinical Summary ---
Author Organization [facility] Address [address] [place] [address] Care Team Providers Care Laborer Sawmill Name Role Phone Enio Infante Primary Care Provider [phone] Allergies Active Allergy Reactions Criticality Noted Date [...] on file Legal Sex Male 2:52 AM MANAGER MEDIA Gender Identity Not on file Sexual Orientation Not on file Obstetrics History Last Filed Vital Signs Vital Sign Reading [...] 12/15/2023 2:04 PM CDT Plan of Treatment Health Maintenance Due Date Last Done Comments Depression Screening 1994 DTaP/Tdap/Td Vaccine (1 - Tdap) 2005 Varicella Vaccines (1 of 2 - 13+ 2-dose series) 07/23/2007 Hepatitis B Screening 2012 Regular Well Visit/Exam 18-64 2012 Covid-19 Vaccine (3 - 2023-2 5 season) 2023 05/29/2021, 05/08/2021 Influenza Vaccine (#1) 2023 Hepatitis C Screening Completed 06/01/2023 HPV Vaccines Aged Out No longer eligi ble based on patient's age to complete this topic Pneumococcal vaccine <65 Aged Out No longer eligible based on patient's age to complete this topic Procedures Procedure Name Priority Date/Time Associated Diagnosis Comments HEPATITIS C ANTIBODY STAT 06/01/2023 1:04 AM MANAGER MEDIA from Last 3 Months or Most Recently Relevant to Health Maintenance Results * Hepatitis C antibody Blood (06/01/2023 1:04 AM MANAGER MEDIA) Hep C Ab Nonreactive Nonreactive [facility] Comment:Antibodies to HCV no t detected. Does NOT exclude the possibility of recent exposure to HCV. Current interpretive data was last revised on 21 Blood 06/01/2023 1:04 AM MANAGER MEDIA 06/01/2023 1:20 AM MANAGER MEDIA us Maria Eugenia Montemayor MD LAB MICROBIOLOGY - GENERAL O RDERABLES Final Result [facility] Department [place] [address] from Last 3 Months or Most Recently Relevant to Health Maintenance Insurance artandseek OOS artandseek OOS Care Teams Laborer Sawmill Relationship Specialty Start Date End Date Enio Infante PA [address] [place] [address] PCP - General Automobile Club Information Clerk 12/15/23
--- OUTSIDE RECORDS SUMMARY | 2024-05-15 13:37 | XMS_ITS | Clinical Summary ---
Author Organization [facility] Address [address] [place] [phone] Phone Care Team Providers Care Tumblers Supervisor Name Role Phone Unavailable Primary Care Provider Unavailabl e Allergies Active Allergy Reactions Criticality Noted Date Comments Ibuprofen Hives High 11/19/2021 Medications chlorhexidine gluconate (Peridex) 0.12 % Mouthwash 15 mL by Mouth/Throat route 2 times daily. 180 mL 11/19/2021 Active clindamycin HCL (CLEOCIN) 300 mg Capsule Take 1 Capsule (300 mg) by mouth 3 times daily. 15 Capsule 11/19/2021 Active HYDROcodone-javon taminophen (NORCO) 5-325 mg tabletIndicatio ns:Pain, dental,Post-ope rative pain Take 1 Tablet by mouth every 8 hours as needed for Pain, Break-Throug h. Max Daily Amount: 3 Tablets 6 Tablet 11/19/2021 Active Social History Tobacco Use Types Packs/Day Years Used Date Smoking Tobacco: Never Tobacco Cessation:Counseling Given: Not Answered Alcohol Use Standard Drinks/Week Comments Not Currently 0 (1 standard drink = 0.6 oz pur e alcohol) Sex and Gender Information Value Date Recorded Sex Assigned at Not on file Legal Sex Male 8:38 AM CDT Gender Identity Not on file Sexual Orientation Not on file Last Filed Vital Signs Vital Sign Reading Time Taken Comments Blood Pressure 124/53 11/19/2021 10:12 AM CDT Pulse 78 11/19/2021 8:40 AM CDT Temperature 36.7 C (98 F) 11/19/2021 8:40 AM CDT Respiratory Rate 17 11/19/2021 10:12 AM CDT Oxygen Saturation 99% 11/19/2021 10:12 AM CDT Inhaled Oxygen Concentration - - Weight 68 kg (150 lb) 11/19/2021 8:40 AM CDT Height 182.9 cm (6') 11/19/2021 8:40 AM CDT Body Mass Index 20.34 11/19/2021 8:40 AM CDT Plan of Treatment Health Maintenance Due Date Last Done Comments DTAP/TDAP/TD VACCINES (1 - Tdap) 2013 HEPATITIS B VACCINES (1 of 3 - 19+ 3-dose series) 2013 INFLUENZA VACCINE (#1) 2023 HPV VACCINES Aged Out No longer eligi ble based on patient's age to complete this topic Insurance [facility] MEDICAID [place]
== END 2024-05-15 10:30 | disposition home or self-care (01) ==
LOC: ANHLAB 10:30
PROVIDERS: Visit Provider Nurse Practitioner Family
DX: R11.0 Nausea (principal); R19.4 Change in bowel habit; R10.9 Unspecified abdominal pain; R63.4 Abnormal weight loss; Z68.1 Body mass index [BMI] 19.9 or less, adult
CPT/HCPCS: 82653; 83993; 87045; 87427; 87449

== ENCOUNTER 2024-06-06 07:44 | Outpatient (CLI) | payer OTHER, SELFPAY ==
--- NOTE | ~2024-06-06 | NM_ITS ---
EXAMINATION: NM hepatobiliary wo pharm DATE: 06/06/2024 11:03 INDICATION: Right upper quadrant abdominal pain. COMPARISON: CT abdomen and pelvis 05/26/2023 TECHNIQUE: 5.08 mCi Tc-99m mebrofenin (Choletec) was administered intravenously. Scintigraphic image s of the abdomen were obtained for one hour. Then, the patient drank 8 oz Ensure, and imaging was con tinued for 60 minutes. FINDINGS: There is normal clearance of radiotracer from the blood pool. There is homogeneous tracer u ptake by the liver. Activity progresses to the bowel and gallbladder. Gallbladder ejection fraction (GBEF) was 96%. Note that with this technique, normal GBEF >= 33%. IMPRESSION: 1. Normal hepatobiliary scintigraphy. Reviewed, dictated and finalized at location B.
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
--- OUTSIDE RECORDS SUMMARY | 2024-06-06 07:48 | XMS_ITS | Encounter Summary ---
Author Organization [facility] Address [address] [place] [address] Care Team Providers Care Ship Scraper Name Role Phone Enio Infante Primary Care Provider [phone] Encounter Details Date Type Department Care Team (Late st Contact Info) Description 03/20/2024 Maxscend Technologiest Message Enc [facility] Group Family & Internal Medicine [facility] [id number] [place] [phone] Enio Infante PA [address] [place] [address] Letter for light duty at work [...] Sex Assigned at Male 05/01/2024 7:26 PM DOG LICENSE OFFICER SUPERVISOR Legal Sex Male 10:22 PM DOG LICENSE OFFICER SUPERVISOR Gender Identity Not on file Sexual Orientation Not on file documented as of this encounter Progress Notes * Nayely Eaton MA - 03/20/2024 8:52 AM CST Please advise. Patient is seeing you 03/27/24 for FMLA LICENSE OFFICER SUPERVISOR documented in this encounter Plan of Treatment Not on file documented as of this encounter Visit Diagnoses Not on filedocumented in this encounter Additional Health Concerns Assessment Noted Time PHQ-9 Depression Total Score: 22 07/04/ 024 3:45 PM CDT documented as of this encounter Care Teams Ship Scraper Relationship Specialty [place] [address] [place] [address] PCP - General Physician Pizzamaker Medical 07/02/23 documented as of this encounter
--- OUTSIDE RECORDS SUMMARY | 2024-06-06 07:48 | XMS_ITS | Referral Summary ---
Author Organization [facility] Address [address] [place] [address] Care Team Providers Care Intermission Coordinator Name Role Phone Unavailable Primary Care Provider Unavailabl e Source Comments [facility],non-owned Affiliates and Associated Physician Practices is amultiple site organization consisting of ambulatory clinics and hospital sitesin [place], [place], [place] and [place]. This disclosure is being madepursuant to the Care Everywhere program and may not contain all information available regarding this patient. Last updated 17.[facility] Social History Tobacco Use Types Packs/Day Years Used Date Smoking Tobacco: Never Assessed Sex and Gender Information Value Date Recorded Sex Assigned at Not on file Gender Identity Not on file Sexual Orientation Not on file Plan of Treatment Not on file Davis De La Fuente Jr. Personal/Family Self 1995
--- OUTSIDE RECORDS SUMMARY | 2024-06-06 07:48 | XMS_ITS | Patient Health Summary ---
Author Organization [facility] Address [address] [place] [address] Care Team Providers Care Title I Teacher Name Role Phone Unavailable Primary Care Provider Unavailabl e Note from [facility],non-owned Affiliates and Associated Physician Practices is amultiple site organization consisting of ambulatory clinics and hospital sitesin [place], [place], [place] and [place]. This disclosure is being madepursuant to the Care Everywhere program and may not contain all information available regarding this patient. Last updated 17.[facility] Social History Tobacco Use Types Packs/Day Years Used Date Smoking Tobacco: Never Assessed Sex and Gender Information Value Date Recorded Sex Assigned at Not on file Gender Identity Not on file Sexual Orientation Not on file Procedures * GROSS + MICRO EXAM(Performed 11/28/1997) Results * GROSS + MICRO EXAM (11/28/1997 9:00 AM CDT) Result CASE NUMBER [id number] [facility] PATH REPORT Comment: ORDERING PHYSICIAN [...] HEAVY METAL EXPOSURE. CLINICAL CORRELATION IS RECOMMENDED. Drill Presser PRAFUL LOZANO RESIDENT IN PATHOLOG Alyson Cannon M.D. PATHOLOGIST Shai Singh M.D. ELECTRONICALLY SHAI STERN MISCELLANEOUS SAMPLES / Unknown 11/28/1997 9:00 AM CDT 11/28/1997 12:30 PM CDT Historical Provider LAB - PATHOLOGY/C YTOLOGY ORDERABLES [facility] PATH REPORT
--- OUTSIDE RECORDS SUMMARY | 2024-06-06 07:48 | XMS_ITS | Encounter Summary ---
Author Organization [facility] Address [address] [place] [address] Care Team Providers Care Mechanical Systems Engineer Name Role Phone Enio Infante Primary Care Provider [phone] Encounter Details Date Type Department Care Team (Late st Contact Info) Description 01/04/2024 Agensys Message [facility] [id number] [place] [phone] Enio Infante PA [address] [place] [address] [phone] Update on referall? Social History Tobacco Use [...] Sex Assigned at Male 05/01/2024 7:26 PM SENIOR MARKETING ANALYST Legal Sex Male 10:22 PM SENIOR MARKETING ANALYST Gender Identity Not on file Sexual Orientation Not on file documented as of this encounter Plan of Treatment Not on file documented as of this encounter Visit Diagnoses Not on filedocumented in this encounter Additional Health Concerns Infection Onset Date Last Indicated Resolved Time COVID-19 Rule Out 03/09/2024 03/09/2024 03/09/2024 11:06 AM SENIOR MARKETING ANALYST Assessment Noted Time PHQ-9 Depression Total Score: 22 024 3:45 PM CDT documented as of this encounter Care Teams Mechanical Systems Engineer Relationship Specialty [place] [address] [place] [address] PCP - General Physician Electric Screw Driver Operator Medical 07/02/23 documented as of this encounter
--- OUTSIDE RECORDS SUMMARY | 2024-06-06 07:48 | XMS_ITS | Clinical Summary ---
Author Organization [facility] Address [address] [facility] [place] [address] Care Team Providers Care Labor Specialist Name Role Phone Unavailable Primary Care Provider Unavailabl e Source Comments [facility],non-owned Affiliates and Associated Physician Practices is amultiple site organization consisting of ambulatory clinics and hospital sitesin [place], [place], [place] and [place]. This disclosure is being madepursuant to the Care Everywhere program and may not contain all information available regarding this patient. Last updated 17.[facility] Social History Tobacco Use Types Packs/Day Years [...]
--- OUTSIDE RECORDS SUMMARY | 2024-06-06 07:49 | XMS_ITS | Clinical Summary ---
Author Organization [facility] Address [address] [place] [phone] Phone Care Team Providers Care Sales Agent Pest Control Service Name Role Phone Unavailable Primary Care Provider [...] patient's age to complete this topic Insurance [facility] [place] [place]
--- OUTSIDE RECORDS SUMMARY | 2024-06-06 07:49 | XMS_ITS | Continuity of Care Document ---
Author Organization [facility] Address [address] [place] [address] Phone Care Team Providers Care Highway Patrol Officer Name Role Phone Bhanu Rodriguez MD Unavailable [...] Copied on Encounter OFFICE/OUTPAT IENT VISIT, EST [facility], [address] [place], [id number], [place] tel:[phone] [facility] back pain1 (chief complaint) globulin1 (chief complaint) weight loss1 (chief complaint) Abnormality of globulinAbnormal weight lossMuscle spasm of back [address], [facility] [place], [id number] , [place]. tel:[phone] Referring Provider: Bhanu Rodriguez, [address] [facility] [address], [place], [place], [id number]. tel:[phone] PREV VISIT, NEW, AGE 18-39 [facility], [address] [place], [place], [id number], [place] tel:[phone] [facility] pHysical (chief complaint) Encntr for general adult medical exam w/o abnormal findings [address] Renny Lafleur, [facility] [address], [place], [place], [id number] , [place]. tel:[phone] Referring Provider: Bhanu Rodriguez [address], [place], [place], [id number]. tel:[phone] Family History Family Member Type Diagnosis Age At Onset Mother Problem (finding) Alive and well Father Problem (finding) back pain Brother Problem (finding) Alive and well Maternal aunt Problem (finding) RA Payers Payer name Insurance type Covered libertarian ID Authoriza tion(s) No Information Social History [...] medical exam w/o abnormal findings) ordered Referral Ordered: LUMBAR XRAY AP AND LAT ONLY ordered Referral Referred To: Physical Therapy Ordered: Referrals: Physical Therapy. Evaluate and treat ordered History Of Present Illness Encounter Date Complaint History Of Prese nt Illness globulin1 Pt has mildly lo w globulin. Pt denies any recurrent infection. weight loss1 Pt has not been losing [...] not lost any weight since last month. back pain1 Pt has been havi ng intermittent low back pain with mild right sciatica Pt has occasional tingling right leg but not all the time. His back x ray is benign Pt did not do PT. Pt tried flexeril which helps Pt states that codeine made him nauseated. pt states that his back pain is improving. pt denies any injury pHysical Pt needs annual physical. Pt lost [...] Mental Status Date Cognitive Assessment Orientation - Kayenta ed to time, place, person, situation.
--- OUTSIDE RECORDS SUMMARY | 2024-06-06 07:49 | XMS_ITS | Referral Summary ---
Author Organization [facility] Address [address] [place] [address] Care Team Providers Care Machinist Apprentice Wood Name Role Phone Enio Infante Primary Care Provider +1- [phone] Allergies Active Allergy Reactions Criticality Noted Date [...] on file Legal Sex Male 2:52 AM ELECT[employer] TOP HELPER Gender Identity Not on file Sexual Orientation [...] HEPATITIS C ANTIBODY STAT 06/01/2023 1:04 AM ELECTRICIANS TOP HELPER from Last 3 Months or Most Recently Relevant to Health Maintenance Results * Hepatitis C antibody Blood (06/01/2023 1:04 AM ELECTRICIANS TOP HELPER) Hep C Ab Nonreactive Nonreactive [facility] Comment:Antibodies to HCV no t detected. Does NOT exclude the possibility of recent exposure to HCV. Current interpretive data was last revised on 21 Blood 06/01/2023 1:04 AM ELECTRICIANS TOP HELPER 06/01/2023 1:20 AM ELECTRICIANS TOP HELPER us Maria Eugenia Montemayor MD LAB MICROBIOLOGY - GENERAL O RDERABLES Final Result [facility] Department of [place] [address] from Last 3 Months or Most Recently Relevant to Health Maintenance Insurance [employer] OOS [employer] OOS Care Teams Machinist Apprentice Wood Relationship Specialty Start Date End Date Enio Infante PA [address] [place], [place] [id number] PCP - General Shooting Gallery Operator 12/15/23
--- OUTSIDE RECORDS SUMMARY | 2024-06-06 07:49 | XMS_ITS | Clinical Summary ---
Author Organization [facility] Address [address] [place] [address] Care Team Providers Care Crochet Beader Name Role Phone Enio Infante Primary Care Provider +1- [phone] Allergies Active Allergy Reactions Criticality Noted Date [...] on file Legal Sex Male 2:52 AM AUTOMATION ENGINEER Gender Identity Not on file Sexual Orientation [...] HEPATITIS C ANTIBODY STAT 06/01/2023 1:04 AM AUTOMATION ENGINEER from Last 3 Months or Most Recently Relevant to Health Maintenance Results * Hepatitis C antibody Blood (06/01/2023 1:04 AM AUTOMATION ENGINEER) Hep C Ab Nonreactive Nonreactive [facility] Comment:Antibodies to HCV no t detected. Does NOT exclude the possibility of recent exposure to HCV. Current interpretive data was last revised on 21 Blood 06/01/2023 1:04 AM AUTOMATION ENGINEER 06/01/2023 1:20 AM AUTOMATION ENGINEER us Maria Eugenia Montemayor MD LAB MICROBIOLOGY - GENERAL O RDERABLES Final Result [facility] Department [place] [address] from Last 3 Months or Most Recently Relevant to Health Maintenance Insurance [employer] OOS [employer] OOS Care Teams Crochet Beader Relationship Specialty Start Date End Date Enio Infante PA [address] [place] [address] PCP - General Automobile Engine Assembler 12/15/23
== END 2024-06-06 07:45 | disposition home or self-care (01) ==
PROVIDERS: Visit Provider Nurse Practitioner Family
DX: R10.9 Unspecified abdominal pain (principal); R11.0 Nausea; R63.4 Abnormal weight loss; R19.4 Change in bowel habit
CPT/HCPCS: 78226; A9537